=== PATIENT | female | born 1975 | race Caucasian/White ===

== ENCOUNTER 2018-04-22 15:59 | Emergency (ER) | payer MEDICARE, OTHER | END 2018-04-22 16:39 | disposition home or self-care (01) | LOC: MADERS 15:59 | DX: K12.1 Other forms of stomatitis (principal); F41.9 Anxiety disorder, unspecified; F32.9 Major depressive disorder, single episode, unspecified; F17.200 Nicotine dependence, unspecified, uncomplicated | CPT/HCPCS: 99282 ==

== ENCOUNTER 2018-05-29 07:29 | Emergency (ER) | payer MEDICARE, OTHER ==
[2018-05-29 08:23] LABS: #Basophils 0.1 thou/uL (0.0-0.2); #Eosinphils 0.1 thou/uL (0.0-0.7); #Lymphocytes 1.4 thou/uL (1.20-3.40); #Monocytes 0.4 thou/uL (0.11-0.59); #Neutrophils 5.6 thou/uL (1.40-6.50); %Basophils 0.7 % (0.0-1.0); %Eosinophils 1.7 % (0.0-10.0); %Lymphocytes 18.6 % (21.0-51.0); %Monocytes 5.5 % (0.0-10.0); %Neutrophils 73.4 % (42.0-75.0); Hemoglobin 10.6 g/dL (12.0-16.0); Mean Corpuscular HGB CONC 31.7 g/dL (32.0-36.0); Mean Corpuscular Hemoglobin 27.5 pg (27.0-31.0); Mean Corpuscular Volume 86.8 fL (78.0-98.0); Mean Platelet Volume 7.9 fL (7.4-10.4); Platelet Count 220 thou/uL (130-400); RBC Distribution Width 12.9 % (11.5-14.5); Red Blood Cell (RBC) Count 3.85 mill/uL (4.20-5.40); White Blood Cell (WBC) Count 7.6 thou/uL (4.8-10.8)
[2018-05-29 08:26] LABS: Bilirubin Negative (Negative); Blood, Urine Negative (Negative); Clarity Slightly Cloudy (Clear); Glucose, Urine (Dipstick) Negative (Negative); Leukocyte Negative (Negative); Nitrite Negative (Negative); Protein, Urine (Dipstick) Negative (Neg-Trace); Specific Gravity, Urine 1.015 (1.005-1.030); pH, Urine 7.5 (5.0-9.0)
[2018-05-29 08:27] LABS: Pregnancy Test - Urine (BHCG) Negative (Negative); Pregu Control Background? CLEAR/WHITE (CLR/WHITE); Pregu Control Bar Appear? YES (CONTROL BAR); Specific Gravity 1.015 (1.002-1.036)
[2018-05-29 08:42] LABS: ALT (SGPT) 15 U/L (8-55); AST (SGOT) 16 U/L (5-34); Albumin 4.2 g/dL (3.5-5.0); Alkaline Phosphatase 94 U/L (40-150); Anion Gap 13 mmol/L (10-20); BUN (Urea Nitrogen) 12 mg/dL (7.0-18.7); Bilirubin, Total 0.8 mg/dL (0.2-1.2); Calc. Creatinine Clearance 0 mL/min (70-130); Calcium 9.1 mg/dL (7.8-10.44); Carbon Dioxide 26 mmol/L (22-29); Chloride 103 mmol/L (98-107); Estimated GFR-MDRD Greater than 90; Glucose 144 mg/dL (70-105); Lipase 17 U/L (8-78); Potassium 3.9 mmol/L (3.5-5.1); Protein, Total 7.2 g/dL (6.0-8.3); Sodium 138 mmol/L (136-145)
[2018-05-29] MEDS ORDERED: Fentanyl 100 MCG/2 ML VIAL ONE ×2 (08:46→10:35)
[2018-05-29 09:04] LABS: Amphetamine Not Detected (NotDetected); Barbiturates Screen Not Detected (NotDetected); Benzodiazepine Screen Not Detected (NotDetected); Cocaine Metabolite Screen Detected (NotDetected); Medtox Control Line Valid? VALID (VALID); Methadone Not Detected (NotDetected); Methamphetamine Not Detected (NotDetected); Opiate Screen Detected (NotDetected); Oxycodone Screen Not Detected (NotDetected); Phencyclidine (PCP) Not Detected (NotDetected); THC/Cannabinoid Screen Not Detected (NotDetected); Tricyclic Screen Not Detected (NotDetected)
--- NOTE | 2018-05-29 09:19 | RAD ---
CHEST PA AND LATERAL: History: 42-year-old female with history of cough. FINDINGS: Heart size is within normal limits. Borderline hyperinflation. No confluent pneumonia, overt edema, o r pleural effusion. IMPRESSION: Borderline hyperinflation. No significant acute intrathoracic disease. No evidence for pneumonia. POS: [facility]
[2018-05-29 11:21] LABS: PTT 28.9 SEC (22.9-36.1)
--- NOTE | 2018-05-29 11:25 | CT ---
CT ABDOMEN AND PELVIS WITH CONTRAST: Comparison: None. History: Right upper quadrant pain for one day. Technique: Multiple contiguous axial images were obtained in a CT of the abdomen and pelvis with cont rast. Coronal reformats were performed. FINDINGS: The gallbladder has been removed. There is a nonobstructing calcification in the right kidney measuri ng approximately 3 mm in size. The liver, left kidney, adrenal glands, spleen, and pancreas are unrem arkable. There appear to be post-surgical changes in the stomach. The large and small bowel are unremarkable. The reproductive organs are unremarkable. No abdominal or pelvic lymphadenopathy are seen. There is a hyperdense mass associated with a left inferior rectus abdominus muscle. This measures 6.0 cm in width and at least 10 cm in length. This likely represents a rectus sheath hematoma. Surroundi ng stranding changes are seen. No free air or free fluid are seen in the abdomen or pelvis. Severe degenerative changes are seen in the right hip. Degenerative changes are seen in the spine. Vi sualized inferior thorax is unremarkable. IMPRESSION: 1. Patient appears to have a left rectus sheath hematoma of the inferior aspect of the left rectus ab dominus muscle. Correlate with coagulation lab values and platelet count. 2. Nonobstructing right renal calcification. 3. Severe right hip degenerative change. POS: [facility]
[2018-05-29] MEDS ORDERED: Iopamidol 370 76% 100 ML VIAL ONE (23:13)
[2018-05-29] MEDS ORDERED: Sodium Chloride 0.9% 1,000 ML BAG ONE (23:34)
== END 2018-05-29 11:40 | disposition home or self-care (01) ==
LOC: MADERS 07:29
DX: M79.81 Nontraumatic hematoma of soft tissue (principal); D64.9 Anemia, unspecified; F14.10 Cocaine abuse, uncomplicated; K62.5 Hemorrhage of anus and rectum; F17.210 Nicotine dependence, cigarettes, uncomplicated; Z79.899 Other long term (current) drug therapy
CPT/HCPCS: 71046; 74177; 80053; 80306; 81003; 81025; 83690; 85025; 85610; 85730; 96361; 96374; 96376; 99406; J3010; J7050

== ENCOUNTER 2019-02-23 10:11 | Emergency (ER) | payer MEDICARE, OTHER | END 2019-02-23 10:25 | disposition home or self-care (01) | LOC: MADERS 10:11 | DX: K02.9 Dental caries, unspecified (principal); M19.90 Unspecified osteoarthritis, unspecified site; F41.9 Anxiety disorder, unspecified; F32.9 Major depressive disorder, single episode, unspecified; F17.210 Nicotine dependence, cigarettes, uncomplicated | CPT/HCPCS: 99283 ==

== ENCOUNTER 2020-02-16 14:36 | Emergency (ER) | payer MEDICARE, OTHER ==
[2020-02-16] MEDS ORDERED: Ketorolac Tromethamine 30 MG/ML VIAL ONE (15:31)
[2020-02-16] MEDS ORDERED: Adacel (T-DAP) 0.5 ML SYRINGE ONE (15:31)
[2020-02-16] MEDS ORDERED: Amoxicillin/Potassium Clav 875 MG TAB ONE (15:31)
== END 2020-02-16 16:00 | disposition home or self-care (01) ==
LOC: MADERS 14:36
DX: L03.011 Cellulitis of right finger (principal); Z23 Encounter for immunization; J44.9 Chronic obstructive pulmonary disease, unspecified; M19.90 Unspecified osteoarthritis, unspecified site; G62.9 Polyneuropathy, unspecified; F41.9 Anxiety disorder, unspecified; F32.9 Major depressive disorder, single episode, unspecified; F17.210 Nicotine dependence, cigarettes, uncomplicated
CPT/HCPCS: 90471; 90715; 96372; J1885

== ENCOUNTER 2023-06-29 10:49 | Emergency (ER) | payer OTHER ==
[2023-06-29] MEDS ORDERED: Ketorolac Tromethamine 30 MG/ML VIAL ONE (12:15)
[2023-06-29] MEDS ORDERED: Boostrix 0.5 ML (Tdap) VIAL (>/=7 yrs of age) ONE (12:16)
== END 2023-06-29 12:55 | disposition home or self-care (01) ==
LOC: MADERS 10:49
DX: M75.102 Unspecified rotator cuff tear or rupture of left shoulder, not specified as traumatic (principal); M75.22 Bicipital tendinitis, left shoulder; Z23 Encounter for immunization
CPT/HCPCS: 90471; 90715; 96372; J1885

== ENCOUNTER 2023-07-23 08:07 | Emergency (ER) | payer OTHER ==
[2023-07-23] MEDS ORDERED: HYDROcodone/Acetaminophen 5/325 mg Tablet ONE (08:18)
[2023-07-23] MEDS ORDERED: Lidocaine 1% (PF) 30 ML VIAL ONE (08:31)
[2023-07-23] MEDS ORDERED: Bacitracin 1 PK ONE (09:21)
== END 2023-07-23 09:50 | disposition home or self-care (01) ==
LOC: MADERS 08:07
DX: S61.251A Open bite of left index finger without damage to nail, initial encounter (principal); S61.551A Open bite of right wrist, initial encounter; S51.811A Laceration without foreign body of right forearm, initial encounter; S61.211A Laceration without foreign body of left index finger without damage to nail, initial encounter; F17.210 Nicotine dependence, cigarettes, uncomplicated; W54.0XXA Bitten by dog, initial encounter; Y93.89 Activity, other specified
CPT/HCPCS: 12002; 99283; J2001